=== PATIENT | male | born 1990 | race Caucasian/White ===

== ENCOUNTER 2024-09-12 13:56 | Emergency (ER) | payer OTHER, SELFPAY ==
[2024-09-12 13:58] VITALS: BP 132/86
--- NOTE | 2024-09-12 14:57 | ED.GENMED ---
History of Present Illness
General
Chief Complaint: Insect Sting
Source: patient
Exam Limitations: none
Time Seen by Provider: 09/12/24 14:41
Nursing documentation reviewed up to this point in time: agreed with
History of Present Illness
History of Present Illness:
33-year-old male presents emergency department after being stung by wasp on his right lower leg at noon. He took Zyrtec and Pepcid, and had some swelling on his right arm as well. He does not know of a sting on his right forearm.
Past History
Past History
ED Past Medical History: None
ED Past Surgical History: None
Social History
Tobacco: Smoker
Alcohol: Occasional
Personal: Single
Living: with family
Employment: Employed
Review of Systems
Review of Systems
Allergies reviewed?: Yes
All Other Systems: Not applicable
Constitutional: Reports no symptoms
EENT: Reports no symptoms
Respiratory: Reports no symptoms
Cardiac: Reports no symptoms
ABD/GI: Reports no symptoms
: Reports no symptoms
Musculoskeletal: Reports no symptoms
Skin: Reports itching and rash
Neurological: Reports no symptoms
Endocrine: Reports no symptoms
Hematologic/Lymphatic: Reports no symptoms
Psychiatric: Reports no symptoms
Phy Exam
Physical Exam
Physical Exam:
Physical Exam
General: no apparent distress, not acutely ill
Neck: supple. no meningeal signs. normal posterior pharynx
Heart: s1/s2 regular rate and rhythm, no murmur. equal radial
pulses.
HEENT: Pupils equal round reactive to light, EOMI
Lungs: no acute respiratory distress. clear bilaterally
Abdomen: normal bowel sounds. not tender. no CVAT
Neuro: alert and oriented. no focal neurological deficits cranial nerves II through XII intact
Skin: no rash
Psychiatric: well kept. interactive and cooperative
Extremities: Right forearm edema. no calf tenderness. negative homans. good distal pulses
Course
Vital Signs
Initial and Last Documented VS:
Initial Vital Signs
Temp Pulse Resp BP Pulse Ox
98.3 F 76 18 132/86 99
09/12/24 13:58 09/12/24 13:58 09/12/24 13:58 09/12/24 13:58 09/12/24 13:58
Last Documented Vital Signs
Temp Pulse Resp BP Pulse Ox
98.3 F 76 18 132/86 99
09/12/24 13:58 09/12/24 13:58 09/12/24 13:58 09/12/24 13:58 09/12/24 14:57
MDM/Problems Addressed
Differential Diagnosis Includes:
Anaphylaxis, allergic reaction
MDM/Problems Addressed:
33-year-old male with wasp sting, allergic reaction. Vital signs stable. No signs of anaphylaxis. Will prescribe EpiPen and short course of prednisone.
*Pulse Oximetry
SaO2: 99
Oxygen Mode of Delivery: Room air
Patient hypoxic: no
*Critical Care Note
Total Time (30-74mins, 75-104mins- exclusive of procedures): Not Applicable
Patient Management
Social determinants of health affecting care: Living situation and Strong social support
Escalation/DeEscalation of care consider admission/obs:
Admit not indicated
ED Attending Note
-
Portions of this chart may have been created with voice recognition software.� Occasional wrong word or��sound alike� substitutions may have occurred due to the inherent limitations of voice recognition software.
Discharge Plan
Departure
Patient Disposition: Home (Routine Discharge)
Date of Disposition: 09/12/24
Time of Disposition: 14:58
Patient with high blood pressure during this ER visit?: Yes
Condition: Good
Discharge Problem:
Allergic reaction to wasp sting
Instructions: Insect bites and stings - ED discharge instructions, BLOOD PRESSURE
Prescriptions:
New
epinephrine [EpiPen 2-Erasmo] 0.3 mg/0.3 mL auto-injector
0.3 mg IM ONCE PRN (Reason: anaphylaxis) Qty: 2 1RF
prednisone 50 mg tablet
50 mg PO DAILY Qty: 6 0RF
No Action
sertraline 25 MG tablet
25 mg PO DAILY
oxycodone 5 mg tablet
5 - 10 mg PO Q4HPRN PRN (Reason: moderate to severe pain) Qty: 10 0RF
Referrals:
Horacio Alvarez MD [Family Provider, Family Practice] - Call in 1-3 days for appt
Interventions
Interventions:
*Risk Screen - Suicide Last Done: 09/12/24 13:58
*General Assessment Last Done: 09/12/24 13:58
*Neglect/Abuse Screening Last Done: 09/12/24 13:58
Discharge Date and Time
Print Language: ARMENIAN
== END 2024-09-12 15:45 | disposition home or self-care (01) ==
LOC: EMR 13:56
PROVIDERS: EMERGENCY PHYSICIAN Emergency Medicine; FAMILY PHYSICIAN Family Medicine
DX: T63.461A Toxic effect of venom of wasps, accidental (unintentional), initial encounter (principal); R03.0 Elevated blood-pressure reading, without diagnosis of hypertension; F17.200 Nicotine dependence, unspecified, uncomplicated
CPT/HCPCS: 99283